=== PATIENT | male | born 1975 ===

== ENCOUNTER → 2022-04-02 | Outpatient (CLI) | payer BC ==
[~2022-04-02] MED LIST: AMOCLA875 PO; FORMULA 303; HYDACE5 PO
== END | disposition home or self-care (01) ==
LOC: LAB SHORT 08:30
DX: L08.9 Local infection of the skin and subcutaneous tissue, unspecified (principal); L85.3 Xerosis cutis; R21 Rash and other nonspecific skin eruption
CPT/HCPCS: 87070; 87205